=== PATIENT | female | born 1980 | race Two or more races ===

== ENCOUNTER 2018-07-20 12:57 | Emergency (ER) | payer MEDICAID ==
[~2018-07-20] VITALS: Ht 170.2 cm; Wt 89.4 kg
[2018-07-20 13:12] VITALS: BP 158/113
[2018-07-20] MEDS ORDERED: ACETAMINOPHEN 500 MG TAB PO ONE (14:30)
[2018-07-20] MEDS ORDERED: HYDROcodone-ACET 7.5/325MG TAB PO ONE (14:45)
== END 2018-07-20 15:23 | disposition home or self-care (01) ==
LOC: ER 12:57
DX: S01.01XA Laceration without foreign body of scalp, initial encounter (principal); S80.12XA Contusion of left lower leg, initial encounter; F17.210 Nicotine dependence, cigarettes, uncomplicated; W01.0XXA Fall on same level from slipping, tripping and stumbling without subsequent striking against object, initial encounter; Y93.89 Activity, other specified; Y99.8 Other external cause status; Y92.015 Private garage of single-family (private) house as the place of occurrence of the external cause
CPT/HCPCS: 12002; 70450; 73590

== ENCOUNTER 2018-08-12 13:14 | Emergency (ER) | payer MEDICAID ==
[~2018-08-12] VITALS: Ht 170.2 cm; Wt 86.2 kg
[2018-08-12 13:45] VITALS: BP 162/86
== END 2018-08-12 14:39 | disposition home or self-care (01) ==
LOC: ER 13:14
DX: S01.01XD Laceration without foreign body of scalp, subsequent encounter (principal); X58.XXXD Exposure to other specified factors, subsequent encounter

== ENCOUNTER 2019-06-21 23:01 | Emergency (ER) | payer MEDICAID ==
[~2019-06-21] VITALS: Ht 170.2 cm; Wt 86.2 kg
[2019-06-22] MEDS ORDERED: MORPHINE SULFATE 4 MG/ML SYR/VIAL IM ONE (04:30)
[2019-06-22 08:00] VITALS: BP 130/72
== END 2019-06-22 08:21 | disposition home or self-care (01) ==
LOC: ER 23:02
DX: S29.011A Strain of muscle and tendon of front wall of thorax, initial encounter (principal); F17.210 Nicotine dependence, cigarettes, uncomplicated; J84.10 Pulmonary fibrosis, unspecified; X58.XXXA Exposure to other specified factors, initial encounter; Y93.89 Activity, other specified; Y92.89 Other specified places as the place of occurrence of the external cause; Y99.8 Other external cause status
CPT/HCPCS: 71101; 71250; 96372; 99284; J2270